=== PATIENT | male | born 1990 | race Caucasian/White ===

== ENCOUNTER → 2019-01-20 | Outpatient (CLI) | payer BC ==
--- NOTE | 2019-01-20 16:21 | CT ---
EXAMINATION TYPE: CT sinus wo con DATE OF EXAM: 01/20/2019 COMPARISON: None HISTORY: sinus congestion, ringing in right ear CT DLP: [address] of the paranasal sinuses was performed in the axial and coronal planes. Bone and soft tissue settings are submitted. The paranasal sinuses demonstrate normal aeration and development. The paranasal sinuses are free of mucosal thickening or air fluid level. The osteal meatal units are patent bilaterally. The nasal septum is midline. No bony destructive changes are seen within the field of view. IMPRESSION: Normal unenhanced CT of the paranasal sinuses.
== END | disposition home or self-care (01) ==
LOC: RADCTMAIN 15:55
PROVIDERS: ATTEND Family Medicine
DX: J32.9 Chronic sinusitis, unspecified (principal)
CPT/HCPCS: 70486

== ENCOUNTER 2019-10-21 12:16 | Day surgery (SDC) | payer BC ==
[2019-10-21 13:48] VITALS: RESP 16
[2019-10-21 14:19] VITALS: BP 131/88; PULSE 78
--- NOTE | 2019-10-21 15:27 | US ---
EXAMINATION TYPE: US FNA first lesion DATE OF EXAM: 10/21/2019 COMPARISON: Ultrasound 09/29/2019 HISTORY: Right neck adenopathy Maximal barrier technique was utilized. After informed consent, skin overlying the right submandibul ar node was localized with ultrasound and the overlying skin prepped and draped. Ultrasound was utili zed using sterile technique. Lidocaine was used for local anesthesia. Four passes with a 25-gauge ne edle one of which was a 23-gauge needle were made into the nodule and aspirated specimen was submitte d to cytology. Following the procedure hemostasis achieved. No immediate complication. The patient discharged in stable condition. IMPRESSION: STATUS POST ULTRASOUND GUIDED FINE NEEDLE ASPIRATION OF RIGHT SUBMANDIBULAR LYMPH node, P ATHOLOGY IS PENDING. THIS PROCEDURE WAS PERFORMED BY THE UNDERSIGNED.
== END 2019-10-21 14:17 | disposition home or self-care (01) ==
LOC: RADPROMAIN 12:16
PROVIDERS: ATTEND Otolaryngology
DX: R22.1 Localized swelling, mass and lump, neck (principal)
CPT/HCPCS: 10005; 88173; 88305

== ENCOUNTER → 2021-05-26 | Outpatient (CLI) | payer BC ==
--- NOTE | 2021-05-26 07:52 | US ---
EXAMINATION TYPE: US thyroid st tissue head/neck DATE OF EXAM: 05/26/2021 COMPARISON: NONE CLINICAL HISTORY: R59.1 GENERALIZED ENLARGED LYMPH NODES. Follow up multiple palpable lumps right nec k Right neck submandibular: 3.9 x 0.9 x 1.4cm lymph node, previous measurement approximately 3.2 x 0.8 by 1.3 cm Right neck lateral: 3.5 x 0.4 x 1.1cm lymph node, previous thought to measure approximately 2.1 x 0.5 x 2.7 cm IMPRESSION: Lymph nodes are similar to prior exam as described, CT neck with contrast may be of bene fit.
== END | disposition home or self-care (01) ==
LOC: RADUSWWP 07:01
PROVIDERS: ATTEND Otolaryngology
DX: R59.1 Generalized enlarged lymph nodes (principal)
CPT/HCPCS: 76536

== ENCOUNTER → 2021-06-22 | Outpatient (CLI) | payer BC ==
--- NOTE | 2021-06-22 10:27 | CT ---
EXAMINATION TYPE: CT soft tissue neck w con DATE OF EXAM: 06/22/2021 HISTORY: Right neck adenopathy COMPARISON: Right neck ultrasound May 26, 2021 CT DLP: 599 mGycm. Automated Exposure Control for Dose Reduction was Utilized. TECHNIQUE: CT scan of the neck is performed with IV Contrast, patient injected with 100 ml mL of Iso jony 300, axial images are obtained, coronal and sagittal reformatted images are reviewed. FINDINGS: Airway: No gross abnormality seen. Parotid/submandibular glands: No gross abnormality seen. Carotid/Vascular Structures: There is four vessel origin from the aortic arch which is normal variant . Osseous Structures: No suspicious abnormality. Other: Metallic BB placed at level palpable abnormality right lateral neck axial image 53 at level of superior thyroid gland. There are prominent but subcentimeter lymph nodes at this level including an elongated oval lesion measuring near 3.0 cm long axis sagittal image 26 but only measuring 5 mm in w idth corresponding to the recent ultrasound. Lesion also identified image 79. Would still favor benig n lymph node. No definitive abnormal greater than 1 cm neck adenopathy. No concerning focal fluid col lection is seen. Elongated but smaller lesions or lymph nodes in the left neck are noted coronal imag e 69 and sagittal image 67 for reference. Similar slightly elongated lymph nodes are seen in the post erior cervical triangles bilaterally above the level of the hyoid bone. IMPRESSION: CT images correlate with recent ultrasound. Elongated right neck lesion at level palpable abnormality favors benign lymph node.
== END | disposition home or self-care (01) ==
LOC: RADCTMAIN 07:33
PROVIDERS: ATTEND Otolaryngology
DX: R59.0 Localized enlarged lymph nodes (principal)
CPT/HCPCS: 70491; Q9967

== ENCOUNTER 2021-07-12 08:54 | Day surgery (SDC) | payer BC ==
[2021-07-12 09:07] VITALS: BP 116/69; PULSE 61; RESP 16; TEMP 97.6
--- NOTE | 2021-07-12 14:01 | US ---
ULTRASOUND GUIDED FNA RIGHT NECK LYMPH NODE BIOPSY: CLINICAL HISTORY: Right submandibular lymph node FINDINGS: The procedure was explained to the patient. The risks, complications, benefits and alternatives were discussed and any questions were answered. Informed consent was obtained. Patient was placed supin e on the ultrasound table and prepped and draped in the usual sterile fashion. Utilizing a 25 gauge needle, five passes were made into the requested right neck lymph node. Patient was stable throughout the procedure. Pathology is pending. All elements of maximal barrier technique were utilized. IMPRESSION: 1. Successful ultrasound guided FNA right neck lymph node biopsy.
== END 2021-07-12 10:20 | disposition home or self-care (01) ==
LOC: RADPROMAIN 08:54
PROVIDERS: ATTEND Otolaryngology
DX: R59.0 Localized enlarged lymph nodes (principal)
CPT/HCPCS: 10005; 38505; 76942; 88173; 88305

== ENCOUNTER → 2021-08-10 | Outpatient (CLI) | payer BC ==
--- NOTE | 2021-08-10 10:33 | CT ---
EXAMINATION TYPE: CT soft tissue neck w con CT DLP: 341.4 mGycm, Automated exposure control for dose reduction was used. DATE OF EXAM: 08/10/2021 8:45 AM COMPARISON: CT soft tissue 06/22/2021. CLINICAL INDICATION:Male, 31 years old with history of R22.1 localized swelling mass lump, 2 lumps on right side of neck, f/u bb placed over them TECHNIQUE: Standard enhanced CT of the neck following intravenous administration of 100 cc of Isovue 300. Axial sections with coronal and sagittal reformats were obtained. Palpable marker placed at the discretion of the patient. FINDINGS: Brain: Visualized portions are grossly unremarkable. Orbits: Unremarkable Sinuses: Grossly unremarkable. Spaces of the neck: Clear and symmetric. Musculoskeletal: No acute osseous pathology. Lymph nodes: Multiple nonenlarged lymph nodes are seen along both anterior chains of the neck. Vascular structures: Visualized major arteries are patent without evidence of aneurysm. Thoracic Inlet/airway: Airway is patent. The lung apices are clear. Soft tissues/Thyroid: Superior palpable marker correlates with the area of fat stranding changes of t he subcutaneous tissues just below the right ear. The inferior palpable marker correlates with normal -appearing sternocleidomastoid muscle. No evidence of organizing fluid collection or mass. Thyroid an d remainder of the soft tissues are unremarkable. IMPRESSION 1. Superior pole marker just below the right ear correlates with tissues without evidence of mass or organizing fluid collection. Correlate for local cellulitis. 2. Inferior palpable marker correlates with the sternocleidomastoid mastoid muscle. No evidence of o rganizing fluid collection or mass.
== END | disposition home or self-care (01) ==
LOC: RADCTMAIN 07:43
PROVIDERS: ATTEND Otolaryngology
DX: R22.1 Localized swelling, mass and lump, neck (principal)
CPT/HCPCS: 70491; Q9967